=== PATIENT | female | born 1975 | race Caucasian/White ===

== ENCOUNTER → 2018-10-21 | Outpatient (CLI) | payer OTHER ==
--- NOTE | 2018-11-04 11:37 | KCIC ---
Bilateral digital screening mammograms with 3-D tomosynthesis: Reason for examination: Routine screening. Comparison is made to previous studies dated 07/23/2017 and 04/10/2015. Bilateral mammograms in CC and oblique projections were obtained with 2-D imaging and 3-D tomosynthesis imaging on a Siemens Inspiration unit and reviewed on the workstation. Interpretation was made with the benefit of CAD. The skin and nipples show no abnormalities. No abnormal axillary lymph nodes are seen. The breast parenchyma is heterogeneously dense. (Breast density: Category C.) There appear to be small circumscribed lesions bilaterally. These may represent cysts and intramammary lymph nodes. Further evaluation with ultrasound is recommended. There are no suspicious calcifications or architectural distortion. Impression: Small circumscribed nodules bilaterally. Recommend follow-up with bilateral breast ultrasound. Your patient's mammogram demonstrates that she has dense breast tissue (breast density category C or D), which could hide abnormalities, and if she has other risk factors for breast cancer that have been identified, she might benefit from supplemental screening tests that may be suggested by you as her ordering physician. Dense breast tissue, in and of itself, is a relatively common condition. Therefore, this information is not provided to cause undue concern, but rather to raise your awareness and to promote discussion with your patient regarding the presence of other risk factors, in addition to dense breast tissue. Your patient's mammography results will be sent to her. BI-RAD Category 0: Incomplete. Needs additional imaging evaluation. "Our facility is accredited by the [employer] Mammography [employer]." This patient's information has been entered into a reminder system for the patient to be notified with the results of her examination and a target date for the next mammogram. Electronically signed by: Ivania Carrillo MD (11/04/2018 11:34 AM) [id number]
== END | disposition home or self-care (01) ==
LOC: KCIC MAMMO 17:50
PROVIDERS: ATTEND Family Medicine
DX: Z12.31 Encounter for screening mammogram for malignant neoplasm of breast (principal); N63.10 Unspecified lump in the right breast, unspecified quadrant; N63.20 Unspecified lump in the left breast, unspecified quadrant
CPT/HCPCS: 77063; 77067

== ENCOUNTER → 2018-11-11 | Outpatient (CLI) | payer OTHER ==
--- NOTE | 2018-11-11 14:28 | KCIC ---
Bilateral breast ultrasound: Reason for examination: Nodular densities on screening mammogram. Comparison is made to mammographic exam dated 10/21/2018. Bilateral whole breast ultrasound including evaluation of all 4 quadrants and the retroareolar and axillary regions of both breasts was performed. The right breast shows presence of hypoechoic circumscribed lesions in the 7:00 position 6 cm from the nipple, in the 9:00 position 5 cm from the nipple and in the 10:00 position 4 cm from the nipple. These probably represent small fibroadenoma and fibrocystic lesions and are subcentimeter in size. No abnormal appearing lymph nodes are seen in the right axilla. The left breast shows hypoechoic circumscribed nodules at the 2:30 position 8 cm from the nipple and at the 3:30 position 5 cm from the nipple. These also have benign fibroadenoma which is fibrocystic appearances and are subcentimeter in size. No abnormal appearing lymph nodes are seen in the left axilla. IMPRESSION: Small benign-appearing nodular densities bilaterally consistent with fibroadenoma and fibrocystic lesions. No suspicious lesion seen. Recommend reevaluation with ultrasound in 3 months. BI-RADS Category 3: Probably Benign. "Our facility is accredited by the [employer] Mammography [employer]." This patient's information has been entered into a reminder system for the patient to be notified with the results of her examination and a target date for the next mammogram. Electronically signed by: Ivania Carrillo MD (11/11/2018 2:25 PM) [id number]
== END | disposition home or self-care (01) ==
LOC: KCIC US 13:00
PROVIDERS: ATTEND Family Medicine
DX: R92.8 Other abnormal and inconclusive findings on diagnostic imaging of breast (principal)
CPT/HCPCS: 76641

== ENCOUNTER → 2019-02-07 | Outpatient (CLI) | payer OTHER ==
--- NOTE | 2019-02-07 09:25 | KCIC ---
BREAST BILATERAL Clinical Indication: 3 month follow-up. Comparison: Bilateral breast ultrasound November 11, 2018. TECHNIQUE: Real-time ultrasound imaging of the right and left breast is performed in all 4 quadrants, retroareolar, and in the axilla. Findings: Fibroadenomatoid or fibrocystic changes in the right breast 7:00 position 6 cm from the nipple, 9:00 position 5 cm from the nipple, and 10:00 position 4 cm from the nipple are stable. At the 9:30 position 3 cm from the nipple there is a new complicated cyst or fibroadenoma measuring 7 x 5 mm. No abnormal right axillary lymph node. In the left breast 2:30 position 8 cm from the nipple fibrocystic change has increased in size measuring 7 x 3 x 5 mm, previously measuring 3 mm. At the 3:30 position 5 cm from the nipple, fibrocystic change has mildly increased in size measuring 5 x 3 x 5 mm, previously 3 x 2 x 3 mm. No abnormal left axillary lymph node. IMPRESSION: 1. There is a new probable complicated cyst or fibroadenoma in the right breast 9:30 position 3 cm from the nipple. 2. Probable fibrocystic changes in the left breast at the 2:30 and 3:30 positions have increased in size. 3. Recommend bilateral breast ultrasound follow-up in 3 months. 4. BI-RADS Category 3, probably benign. Electronically signed by: Jp Linder MD (02/07/2019 9:23 AM) [id number]
== END | disposition home or self-care (01) ==
LOC: KCIC US 07:58
PROVIDERS: ATTEND Family Medicine
DX: R92.8 Other abnormal and inconclusive findings on diagnostic imaging of breast (principal)
CPT/HCPCS: 76641